=== PATIENT | female | born 1970 | race Caucasian/White ===

== ENCOUNTER → 2024-02-15 15:30 | Outpatient (REF) | payer BC, SELFPAY | LOC: HWWDC 15:30 | PROVIDERS: ATTENDING PHYSICIAN Nurse Practitioner Family | DX: Z12.31 Encounter for screening mammogram for malignant neoplasm of breast (principal) | CPT/HCPCS: 77063; 77067 ==

== ENCOUNTER → 2025-08-24 06:48 | Outpatient (REF) | payer BC, SELFPAY | LOC: WDC 06:48 | PROVIDERS: ATTENDING PHYSICIAN Internal Medicine | DX: Z12.31 Encounter for screening mammogram for malignant neoplasm of breast (principal) | CPT/HCPCS: 77063; 77067 ==